=== PATIENT | female | born 1975 | race Caucasian/White ===

== ENCOUNTER 2024-03-18 12:11 | Outpatient (CLI) | payer OTHER, SELFPAY ==
--- NOTE | ~2024-03-18 | XR_ITS ---
EXAMINATION: XR chest 2V DATE: 03/18/2024 12:54 INDICATION: Palpitations TECHNIQUE: PA and lateral views of the chest were obtained. COMPARISON: Chest radiograph dated 01/06/2016 FINDINGS: Tiny calcified right upper lobe nodule consistent with old granulomatous disease. No other airspace o pacities, pulmonary edema, pleural effusion or pneumothorax. The cardiomediastinal silhouette is norm al. Mild thoracic spondylosis. IMPRESSION: 1. No acute cardiopulmonary disease. Reviewed, dictated and finalized at location A.
== END 2024-03-18 12:12 ==
LOC: MICIMG 12:14
PROVIDERS: PCP Family Medicine; Visit Provider Physician Assistant
DX: R00.2 Palpitations (principal)
CPT/HCPCS: 71046

== ENCOUNTER 2024-04-28 09:57 | Outpatient (CLI) | payer OTHER, SELFPAY ==
--- NOTE | 2024-05-04 12:55 | WPDHOLTEREM ---
Holter/Event Monitor Holter/Event Monitor Date of procedure: 04/28/24 Holter/Event Procedure: 48 Hr Holter Monitor Indications: Palpitations Conclusion: 1. 48 hour holter monitor on 04/28/24. 2. Underlying rhythm is sinus rhythm. HR range 47-136 bpm; average HR 88 bpm. HR at 47 bpm was at 02:25. 3. There are 8 premature supraventricular complexes. No supraventricular tachycardia. 4. There are 5,539 premature ventricular complexes, 21 ventricular bigeminy, and 1,194 ventricular trigeminy. No ventricular tachycardia. 5. No sinoatrial or atrioventricular blocks. No significant pauses greater than 2 seconds. 6. Patient reports symptoms of dizziness which demonstrate sinus rhythm, HR range 81-105 bpm.
== END 2024-04-28 09:58 | disposition home or self-care (01) ==
LOC: ANHCARD 09:59
PROVIDERS: PCP Family Medicine; Visit Provider Physician Assistant
DX: R00.2 Palpitations (principal)
CPT/HCPCS: 93225; 93226

== ENCOUNTER 2024-07-09 07:29 | Outpatient (CLI) | payer OTHER, SELFPAY ==
--- NOTE | 2024-07-09 07:31 | EST_ITS ---
Patient Info Name: Nandini Whitney Age: 48 years : 1975 Gender: Female Ht: 62 in Wt: 185 lbs BSA: 1.95 m2 HR: 67 bpm BP: 137 / 91 mmHg Exam Date: 07/09/2024 8:18 AM Exam Location: Echo Lab Patient Status: Outpatient Admit Date: 07/09/2024 Staff Ordering Physician: Jose Morton DO Attending Provider: Jose Morton DO Exercise Technologist: Kari Sy RDCS Exercise Physician: Jose Morton DO Exam Type: CA stress test treadmill Study Info A treadmill exercise stress test was performed. Summary 1. 1. Negative Presley exercise stress test for ischemic ST changes by ECG criteria. 2. 2. Good functional capacity, achieving 8.9 METs of workload. 3. 3. Appropriate HR response to exercise. 4. 4. Appropriate HR recovery at 1 minute post exercise. 5. 5. No imaging with stress testing. 6. 6. Patient informed of the above results. Protocol: Presley Stress ECG Details Stage: REST Duration (min): 0 min : 48 sec Speed (mph): 0.0 Grade (%): 0 HR (bpm): 69 SBP (mmHg): 137 DBP (mmHg): 91 METS: --- Stage: REST Duration (min): 5 min : 57 sec Speed (mph): 0.0 Grade (%): 0 HR (bpm): 80 SBP (mmHg): 137 DBP (mmHg): 91 METS: --- Stage: STAGE 1 Duration (min): 1 min : 0 sec Speed (mph): 1.7 Grade (%): 10 HR (bpm): 114 SBP (mmHg): 137 DBP (mmHg): 91 METS: --- Stage: STAGE 1 Duration (min): 2 min : 0 sec Speed (mph): 1.7 Grade (%): 10 HR (bpm): 130 SBP (mmHg): 137 DBP (mmHg): 91 METS: --- Stage: STAGE 1 Duration (min): 3 min : 0 sec Speed (mph): 1.7 Grade (%): 10 HR (bpm): 136 SBP (mmHg): 137 DBP (mmHg): 91 METS: --- Stage: STAGE 2 Duration (min): 1 min : 0 sec Speed (mph): 2.5 Grade (%): 12 HR (bpm): 144 SBP (mmHg): 137 DBP (mmHg): 91 METS: --- Stage: STAGE 2 Duration (min): 2 min : 0 sec Speed (mph): 2.5 Grade (%): 12 HR (bpm): 147 SBP (mmHg): 117 DBP (mmHg): 89 METS: --- Stage: STAGE 2 Duration (min): 3 min : 0 sec Speed (mph): 2.5 Grade (%): 12 HR (bpm): 152 SBP (mmHg): 117 DBP (mmHg): 89 METS: --- Stage: STAGE 3 Duration (min): 1 min : 0 sec Speed (mph): 3.4 Grade (%): 14 HR (bpm): 169 SBP (mmHg): 117 DBP (mmHg): 89 METS: --- Stage: STAGE 3 Duration (min): 1 min : 0 sec Speed (mph): 3.4 Grade (%): 14 HR (bpm): 169 SBP (mmHg): 117 DBP (mmHg): 89 METS: --- Stage: RECOVERY Duration (min): 0 min : 59 sec Speed (mph): 0.0 Grade (%): 0 HR (bpm): 154 SBP (mmHg): 117 DBP (mmHg): 89 METS: --- Stage: RECOVERY Duration (min): 1 min : 59 sec Speed (mph): 0.0 Grade (%): 0 HR (bpm): 127 SBP (mmHg): 165 DBP (mmHg): 59 METS: --- Stage: RECOVERY Duration (min): 2 min : 59 sec Speed (mph): 0.0 Grade (%): 0 HR (bpm): 116 SBP (mmHg): 157 DBP (mmHg): 66 METS: --- Stage: RECOVERY
--- NOTE | 2024-07-09 07:31 | ECHO_ITS ---
Patient Info Name: Nandini Whitney Age: 48 years : 1975 Gender: Female Ht: 64 in Wt: 185 lbs BSA: 1.98 m2 HR: 71 bpm BP: 132 / 94 mmHg Technical Quality: Good Exam Date: 07/09/2024 7:54 AM Exam Location: Echo Lab Patient Status: Outpatient Admit Date: 07/09/2024 Staff Ordering Physician: Jose Morton DO Crossword Puzzle Maker: Letty Osborne RDCS Attending Provider: Jose Morton DO Referring Physician: Praveen HORTON; Exam Type: CA echo doppler color flow Study Info Indications I49.3 - Ventricular premature depolarization Complete two-dimensional, color flow and Doppler transthoracic echocardiogram is performed. Strain analysis performed. Summary 1. Complete two-dimensional, color flow and Doppler transthoracic echocardiogram is performed. 2. Left ventricular chamber dimension is normal. 3. Left ventricular systolic function is normal, estimated at 60-65%. 4. The left ventricular diastolic function is grade I diastolic dysfunction. 5. E/e' 6 is not elevated. 6. Global longitudinal strain is normal at -19.4%. 7. There is trace tricuspid valve regurgitation. 8. No pulmonary hypertension, estimated pulmonary arterial systolic pressure is 25 mmHg. Left Ventricle E/e' 6 is not elevated. Global longitudinal strain is normal at -19.4%. Left ventricular chamber dimension is normal. Left ventricular systolic function is normal, estimated at 60-65%. The left ventricular diastolic function is grade I diastolic dysfunction. Right Ventricle Right ventricular systolic function is normal and with normal TAPSE 2.0 cm. Right ventricular chamber dimension is normal. Left Atria Left atrial chamber dimension is normal. Right Atria Right atrial chamber dimension is normal. Aortic Valve The aortic valve is trileaflet. There is no aortic valve stenosis. There is no aortic valve regurgitation. Pulmonic Valve There is no pulmonic regurgitation. Mitral Valve There is no mitral valve stenosis. There is no mitral valve regurgitation. Tricuspid Valve There is trace tricuspid valve regurgitation. No pulmonary hypertension, estimated pulmonary arterial systolic pressure is 25 mmHg. Pericardium/Pleural There is no pericardial effusion. Inferior Vena Cava Normal inferior vena cava with >50% collapse upon inspiration consistent with normal right atrial pressure, 5 mmHg. Aorta The aortic root size at the sinus of Valsalva is normal. Left Ventricular Outflow Tract Name Value Normal LVOT 2D LVOT Diameter 2.0 cm LVOT Doppler LVOT Peak Gradient 3 mmHg LVOT Mean Gradient 2 mmHg LVOT VTI 17 cm LVOT VTI/AV VTI Ratio 0.7 LVOT Stroke Volume 56 ml LVOT CO 4.2 l/min LVOT CI 2.1 l/min/m2 Pulmonic Valve Name Value Normal RVOT Doppler RVOT Peak Gradient
== END 2024-07-09 07:30 | disposition home or self-care (01) ==
PROVIDERS: PCP Family Medicine; Visit Provider Internal Medicine Cardiovascular Disease
DX: R00.2 Palpitations (principal); I49.3 Ventricular premature depolarization
CPT/HCPCS: 93017; 93306

== ENCOUNTER 2025-04-20 16:08 | Outpatient (CLI) | payer BC, SELFPAY ==
--- NOTE | ~2025-04-20 | XR_ITS ---
Right Hand Technique: PA and lateral views were obtained. Clinical History: Pain Findings: No acute fracture or dislocation is seen. Osseous alignment is anatomic. Joint spaces are p reserved. Soft tissues are unremarkable. Impression: Unremarkable right hand. Reviewed, dictated and finalized at location M. Impression: Unremarkable right hand.
--- OUTSIDE RECORDS SUMMARY | 2025-04-20 18:04 | XMS_ITS | Continuity of Care Document ---
Author Organization [facility] Address [address] [place] [address] [address] [place] [address] Phone Care Team Providers Care Roll Tender Name Role Phone Jean Baptiste OD, Xander Unavailable Unavailable Procedures Procedure Date Eye Exam & Treatment Advance Directives Directive Yes / No Effective Date File Name No Information Encounters Encounter Description Practice Location Reason(s) For Visit Diagnoses Date Provider Providers Copied on Encounter [facility], [address] [place], [place], [id number], [place] tel:[phone] [facility] No Information 4-200 7 Jean Baptiste OD Xander. [address] , [address], [place], [address], [place]. tel:[phone] Family History Family Member Type Diagnosis Age At Onset No Information Payers Payer name Insurance type Covered republican ID Authoriza tion(s) Medicaid [facility] [id number] Social History Type Description Quantity Date Captured Comments Sex Female Smoking Status No Information Chief Complaint And Reason For Visit No Information Reason For Referral Reason For Referral No Information History Of Present Illness Encounter Date Complaint History Of Prese nt Illness No Information Functional Status Date Functional Assessmen t No Information Instructions Date Instruction Additional Infor mation No Information Assessments Type Assessment Date No Information Patient Care Teams Name Effective Dates (start - stop) Status Members No Information
== END 2025-04-20 16:09 | disposition home or self-care (01) ==
PROVIDERS: PCP Family Medicine; Visit Provider Family Medicine
DX: M79.641 Pain in right hand (principal)
CPT/HCPCS: 73120